=== PATIENT | female | born 1970 | race American Indian/Alaskan Native ===

== ENCOUNTER 2017-01-11 22:12 | Emergency (ER) | payer MEDICAID ==
[~2017-01-11] VITALS: Ht 172.7 cm; Wt 108.0 kg
[2017-01-11 22:28] VITALS: BP 142/79
[2017-01-12] MEDS ORDERED: IBUPROFEN 600 MG TAB PO ONE
== END 2017-01-12 00:11 | disposition home or self-care (01) ==
LOC: ER 22:14
DX: K04.7 Periapical abscess without sinus (principal); K13.70 Unspecified lesions of oral mucosa; Z90.49 Acquired absence of other specified parts of digestive tract; F17.210 Nicotine dependence, cigarettes, uncomplicated

== ENCOUNTER 2017-03-04 17:10 | Emergency (ER) | payer MEDICAID ==
[~2017-03-04] VITALS: Ht 172.7 cm; Wt 108.0 kg
[2017-03-04 17:29] VITALS: BP 128/69
== END 2017-03-04 17:55 | disposition home or self-care (01) ==
LOC: ER 17:16
DX: N61.1 Abscess of the breast and nipple (principal); F17.210 Nicotine dependence, cigarettes, uncomplicated; Z90.49 Acquired absence of other specified parts of digestive tract; Z88.6 Allergy status to analgesic agent; Z88.8 Allergy status to other drugs, medicaments and biological substances